=== PATIENT | male | born 1960 | race Caucasian/White ===

== ENCOUNTER → 2017-01-29 | Outpatient (CLI) | payer OTHER ==
--- NOTE | 2017-01-29 15:08 | US ---
EXAMINATION TYPE: US carotid duplex BILAT DATE OF EXAM: 01/29/2017 COMPARISON: NONE CLINICAL HISTORY: I34.0 Mitral valve disorders. EXAM MEASUREMENTS: RIGHT: Peak Systolic Velocity (PSV) cm/sec ----- Right CCA: 85.7 ----- Right ICA: 57.3 ----- Right ECA: 60.5 ICA/CCA ratio: 0.6 RIGHT: End Diastole cm/sec ----- Right CCA: 26.0 ----- Right ICA: 25.2 ----- Right ECA: 11.1 LEFT: Peak Systolic Velocity (PSV) cm/sec ----- Left CCA: 62.5 ----- Left ICA: 96.9 (Bulb) ----- Left ECA: 66.0 ICA/CCA ratio: 1.6 LEFT: End Diastole cm/sec ----- Left CCA: 26.3 ----- Left ICA: 41.8 (bulb) ----- Left ECA: 6.9 VERTEBRALS (direction of flow): Right Vertebral: Antegrade Left Vertebral: Antegrade Rhythm: Normal No significant velocity elevation on right, left bulb show very mild velocity increase. Mild plaque Doppler waveforms appear normal. IMPRESSION: Bilateral intimal thickening without significant flow-limiting stenosis. Criteria for Assigning % of Stenosis / Diameter reduction (Estimation based on the indirect measurements of the internal carotid artery velocities (ICA PSV). 1. Normal (no stenosis)=ICA PSV < 125 cm/s: ratio < 2.0: ICA EDV<40 cm/s. 2. Less than 50% stenosis=ICA PSV < 125 cm/s: ratio < 2.0: ICA EDV<40 cm/s. 3. 50 to 69% stenosis=ICA PSV of 125 to 230 cm/s: ration 2.0 ? 4.0: ICA EDV 40-100 cm/s. 4. Greater than 70% stenosis to near occlusion= ICA PSV > 230 cm/s: ratio > 4.0: ICA EDV > 100 cm/s. 5. Near occlusion= ICA PSV velocities may be low or undetectable: variable ratio and ICA EDV. 6. Total occlusion=unable to detect flow.
--- NOTE | 2017-01-30 08:58 | ECHOF ---
Referral Reason:I34.0 Mitral valve disorders MEASUREMENTS -------- HEIGHT: 167.6 cm WEIGHT: 68.9 kg BP: 121/79 RVIDd: 2.3 cm (< 3.3) IVSd: 0.7 cm (0.6 - 1.1) LVIDd: 4.4 cm (3.9 - 5.3) LVPWd: 0.8 cm (0.6 - 1.1) IVSs: 1.3 cm LVIDs: 2.5 cm LVPWs: 1.2 cm LAESV Index (A-L): 23.97 ml/m Ao Diam: 3.0 cm (2.0 - 3.7) AV Cusp: 1.6 cm (1.5 - 2.6) LA Diam: 2.7 cm (2.7 - 3.8) EPSS: 0.5 cm MV E Ambrose: 0.93 m/s MV DecT: 289 ms MV A Ambrose: 0.88 m/s MV E/A Ratio: 1.06 MV EF SLOPE: 94.99 mm/s (70 - 150) MV EXCURSION: 1.36 cm (> 18.000) FINDINGS -------- Sinus rhythm. This was a technically good study. The left ventricular size is normal. Left ventricular wall thickness is normal. Overall left vent ricular systolic function is normal with, an EF between 60 - 65 %. The right ventricle is normal in size and function. Normal LA size by volume 22+/-6 ml/m2. The right atrium is normal in size. Aortic valve is trileaflet and is mildly thickened. There is no evidence of aortic regurgitation. There is no evidence of aortic stenosis. The mitral valve leaflets are mildly thickened. There is trace mitral regurgitation. Trace tricuspid regurgitation present. Right ventricular systolic pressure is normal at < 35 mmHg. There is no evidence of pulmonary hypertension. The pulmonic valve is normal. The aortic root size is normal. Normal inferior vena cava with normal inspiratory collapse consistent with estimated right atrial pre ssure of 5 mmHg. The pericardium is normal. There is no pericardial effusion. CONCLUSIONS -------- 1. Sinus rhythm. 2. This was a technically good study. 3. The left ventricular size is normal. 4. Left ventricular wall thickness is normal. 5. Overall left ventricular systolic function is normal with, an EF between 60 - 65 %. 6. Normal LA size by volume 22+/-6 ml/m2. 7. Aortic valve is trileaflet and is mildly thickened. 8. The mitral valve leaflets are mildly thickened. 9. There is trace mitral regurgitation. 10. Trace tricuspid regurgitation present. 11. Right ventricular systolic pressure is normal at < 35 mmHg. 12. There is no evidence of pulmonary hypertension. 13. The aortic root size is normal. 14. There is no pericardial effusion. TEACHER MUSIC: Bryan Gonzalez RDCS
== END | disposition home or self-care (01) ==
LOC: RADECHMAIN 13:00
PROVIDERS: ATTEND Internal Medicine
DX: I08.0 Rheumatic disorders of both mitral and aortic valves (principal); I77.89 Other specified disorders of arteries and arterioles
CPT/HCPCS: 93306; 93880

== ENCOUNTER → 2019-04-30 | Outpatient (CLI) | payer MEDICARE, OTHER ==
--- NOTE | 2019-04-30 11:48 | CTL ---
EXAMINATION TYPE: CT Low Dose Lung DATE OF EXAM ORDERED: 04/30/2019 COMPARISON: None HISTORY: . Low Dose CT Lung Screening CT DLP: 94.[address] CTDI: 2.9 mGy IV CONTRAST USED: None. SCREENING VISIT: First visit COMPARISON: None. TECHNIQUE: Low dose computed tomography scan was performed through the chest at 1 millimeter thick se ctions and reconstructed images in the coronal plane at [address] DIAGNOSTIC QUALITY: Satisfactory FINDINGS: LUNG NODULES: Not presentLeft lung: no nodules identified.Right lung: no nodules identified. LUNGS: COPD: Severity: Mild Fibrosis: Severity:None Lymph nodes: None Other findings: None RIGHT PLEURAL SPACE: Effusion: None Calcification: None Thickening: None Pneumothorax: None LEFT PLEURAL SPACE: Effusion: None Calcification: None Thickening: None Pneumothorax: None HEART: Heart Size: Mildly enlarged Coronary calcification: Mild Pericardial effusion: None OTHER FINDINGS: Upper abdomen: No significant abnormality Bony thorax: Degenerative changes Supraclavicular region: No significant abnormalityOther: No significant abnormalityI IMPRESSION: No suspicious pulmonary nodule or mass identified. FOLLOW UP CT CHEST RECOMMENDATION: Follow-up screening in one year CT LUNG RAD: LUNG RAD CATEGORY 1 negative
== END | disposition home or self-care (01) ==
LOC: RADCTMAIN 10:54
PROVIDERS: ATTEND Internal Medicine
DX: Z12.2 Encounter for screening for malignant neoplasm of respiratory organs (principal); F17.210 Nicotine dependence, cigarettes, uncomplicated

== ENCOUNTER → 2019-10-18 | Outpatient (CLI) | payer MEDICARE, OTHER ==
--- NOTE | 2019-10-18 11:52 | XR ---
EXAMINATION TYPE: XR ribs LT w pa chest xray DATE OF EXAM: 10/18/2019 COMPARISON: NONE HISTORY: Pain TECHNIQUE: PA view of the chest and 4 views of the left ribs are submitted FINDINGS: The lungs are clear. There is hypertrophic change of the AC joint. No pneumothorax or conso lidation. No pleural effusion. No acute displaced rib fracture IMPRESSION: No acute displaced rib fracture.
== END | disposition home or self-care (01) ==
LOC: RADXRMAIN 10:44
PROVIDERS: ATTEND Internal Medicine
DX: S22.32XA Fracture of one rib, left side, initial encounter for closed fracture (principal)

== ENCOUNTER 2020-01-05 10:13 | Emergency (ER) | payer MEDICARE, OTHER ==
[2020-01-05 10:16] VITALS: BP 123/76; RESP 18; TEMP 98.1
[2020-01-05] MEDS ORDERED: CEPHALEXIN 500MG STARTER PACK 4 CAP BTL PO STA (10:40)
--- NOTE | 2020-01-05 10:48 | ED ---
ENT HPI - General Chief complaint: Dental/Oral Stated complaint: mouth pain Source: patient Mode of arrival: ambulatory Limitations: no limitations - History of Present Illness Initial comments: 59-year-old male presenting today for chief complaint of left upper lip swelling x 1 day. Patient states that he had a, after shaving on his left upper lip. Patient states that it became slightly swollen and he attempted to drain with a needle last night. He states the middle night he had throbbing pain, and woke up with a swollen left lip with some redness. Patient denies any purulent drainage. He denies any fevers chills general malaise or additional complaints. Upon arrival patient appears well nontoxic in no acute distress. Patietn denies tongue swelling, difficulty breathing, wheezing, nausea, vomiting abdominal pain. Patient appears well nontoxic in no acute distress upon arrival. - Related Data Home Medications Medication Instructions Recorded Confirmed Aspirin 325 mg PO DAILY 04/17/15 04/18/15 Beclomethasone Dipropionate [Qvar 2 puff INHALATION BID 04/17/15 04/18/15 80 mcg/puff] Butalb/Acetaminophen/Caffeine 1 - 2 cap PO Q4HR PRN 04/17/15 04/18/15 [Fioricet 50-300-40 mg Capsule] HYDROcodone/APAP 5-325MG [Clyde 1 - 2 tab PO Q6HR PRN 04/17/15 04/18/15 5-325] Omeprazole 40 mg PO AC-BRKFST 04/17/15 04/18/15 Simvastatin [Zocor] 20 mg PO HS 04/17/15 04/18/15 Zolpidem [Ambien] 10 mg PO HS PRN 04/17/15 04/18/15 carisoprodoL [Soma] 350 mg PO HS 04/17/15 04/18/15 lisinopriL [Zestril] 10 mg PO DAILY 04/17/15 04/18/15 Previous Rx's Medication Instructions Recorded Cephalexin [Keflex] 500 mg PO Q6HR 7 Days #28 cap 01/05/20 Allergies Allergy/AdvReac Type Severity Reaction Status Date / Time metoclopramide HCl AdvReac agitated Verified 01/05/20 10:17 [From Reglan] prochlorperazine AdvReac agitated Verified 01/05/20 10:17 [From Compazine] prochlorperazine edisylate AdvReac agitated Verified 01/05/20 10:17 [From Compazine] prochlorperazine maleate AdvReac agitated Verified 01/05/20 10:17 [From Compazine] Review of Systems ROS Statement: Those systems with pertinent positive or pertinent negative responses have been documented in the HPI. ROS Other: All systems not noted in ROS Statement are negative. Past Medical History Past Medical History: Asthma, COPD, GERD/Reflux, Hyperlipidemia, Hypertension, Sleep Apnea/CPAP/BIPAP Additional Past Medical History / Comment(s): uses CPAP, hx. kidney stones, migraines History of Any Multi-Drug Resistant Organisms: None Reported Past Surgical History: Back Surgery, Hernia Repair Additional Past Surgical History / Comment(s): back & neck fusions x 2, surg. for kidney stones, repair of gastric ulcer Past Anesthesia/Blood Transfusion Reactions: No Reported Reaction Past Psychological History: No Psychological Hx Reported Smoking Status: Current every day smoker Past Alcohol Use History: None Reported Past Drug Use History: None Reported - Past Family History Mother Family Medical History: No Reported History General Exam - General Exam Comments Initial Comments: General: The patient is awake and alert, in no distress Eye: +3 mm pupils are equal, round and reactive to light, extra-ocular movements are intact. No nystagmus. There is normal conjunctiva bilaterally. No signs of icterus. Ears, nose, mouth and throat: There are moist mucous membranes and no oral lesions. Neck: The neck is supple, there is no tenderness or JVD. Cardiovascular: There is a regular rate and rhythm. No murmur, rub or gallop is appreciated. Respiratory: Lungs are clear to auscultation, respirations are non-labored, breath sounds are equal. No wheezes, stridor, rales, or rhonchi. Gastrointestinal: Soft, non-distended, non-tender abdomen without masses or organomegaly noted. There is no rebound or guarding present. Musculoskeletal: Normal ROM, no tenderness. Strength 5/5. Sensation intact. Radial pulses equal bilaterally 2+. Neurological: A&O x 3. CN II-XII intact grossly, There are no obvious motor or sensory deficits. Coordination appears grossly intact. Speech is normal. Skin: Skin is warm and dry and no rashes.Left upper lip swelling, small abrasion 1/4 cm. swelling redness surrounding lesion, no fluctuant area Psychiatric: Cooperative, appropriate mood & affect, normal judgment. Limitations: no limitations Course Vital Signs 01/05/20 01/05/20 01/05/20 10:14 10:51 10:59 Temperature 98.1 F 98.1 F Pulse Rate 116 H 94 94 Respiratory 18 18 18 Rate Blood Pressure 123/76 123/76 O2 Sat by Pulse 99 99 99 Oximetry Medical Decision Making - Medical Decision Making Patient has hx, PE findings concerning for developing infection. Patient does take lisinopril however given redness, laceration i feel this is most likely infectious. I discussed the importance of watching for tongue swelling, increasing lip swelling. Patient feels this is infectious given he inserted needle into right before swelling started. Discussed case/hx/medications with attending he is agreeable to close home monitoring with oral antibtioics and pcp f/u. Return parameters discussed pateint discharged appearing well. Disposition Clinical Impression: Infected lip laceration Disposition: HOME SELF-CARE Condition: Good Instructions (If sedation given, give patient instructions): Cellulitis (ED) Additional Instructions: Please use medication as discussed. Please follow-up with family doctor in the next 2 days. Watch for fevers, increasing swelling. Please return to emergency room if the symptoms increase or worsen or for any other concerns. Prescriptions: Cephalexin [Keflex] 500 mg PO Q6HR 7 Days #28 cap Is patient prescribed a controlled substance at d/c from ED?: No Referrals: Betty Boothe MD [Primary Care Provider] - 1-2 days Time of Disposition: 10:48
[2020-01-05 10:51] VITALS: PULSE 94
== END 2020-01-05 11:00 | disposition home or self-care (01) ==
LOC: EC 10:13
DX: S01.511A Laceration without foreign body of lip, initial encounter (principal); L08.9 Local infection of the skin and subcutaneous tissue, unspecified; R22.0 Localized swelling, mass and lump, head; J44.9 Chronic obstructive pulmonary disease, unspecified; K21.9 Gastro-esophageal reflux disease without esophagitis; E78.5 Hyperlipidemia, unspecified; I10 Essential (primary) hypertension; G47.30 Sleep apnea, unspecified; F17.200 Nicotine dependence, unspecified, uncomplicated; Z88.8 Allergy status to other drugs, medicaments and biological substances; Z99.89 Dependence on other enabling machines and devices; Z79.51 Long term (current) use of inhaled steroids; Z79.899 Other long term (current) drug therapy; Z79.82 Long term (current) use of aspirin; W45.8XXA Other foreign body or object entering through skin, initial encounter
CPT/HCPCS: 99283

== ENCOUNTER → 2020-03-15 | Outpatient (CLI) | payer MEDICARE, OTHER ==
[2020-03-15 16:09] LABS: Basophils % (A) 0 %; Eosinophils # (A) 0.1 k/uL (0-0.7); Eosinophils % (A) 0 %; HCT 46.3 % (39.0-53.0); HGB 15.3 gm/dL (13.0-17.5); Lymphocytes # (A) 2.6 k/uL (1.0-4.8); Lymphocytes % (A) 25 %; MCH 31.3 pg (25.0-35.0); MCV 94.7 fL (80.0-100.0); Mean Platelet Volume 6.9; Monocytes # (A) 0.6 k/uL (0-1.0); Monocytes % (A) 6 %; Neutrophils % (A) 67 %; Platelet Count 280 k/uL (150-450); RBC 4.89 m/uL (4.30-5.90); RDW 12.1 % (11.5-15.5); WBC 10.4 k/uL (3.8-10.6)
[2020-03-15 16:34] LABS: Appearance,Urine Clear (Clear); Bilirubin,Urine Negative (Negative); Blood,Urine Negative (Negative); Color,Urine Yellow; Glucose,Urine (UA) Negative (Negative); Ketones,Urine Negative (Negative); Leukocyte Esterase,Urine Negative (Negative); Nitrite,Urine Negative (Negative); PH, Urine 5.5 (5.0-8.0); Protein,Urine Negative (Negative); Specific Gravity,Urine 1.018 (1.001-1.035); Urobilinogen,Urine <2.0 mg/dL (<2.0)
[2020-03-16 03:00] LABS: African American GFR (CKD) 113.3 (60.0-200.0); Albumin 4.6 g/dL (3.80-4.90); Albumin/Globulin Ratio 2.3 (1.60-3.17); Anion Gap 3.9 mmol/L (4.00-12.00); Calcium 9.3 mg/dL (8.7-10.3); Carbon Dioxide 29.1 mmol/L (21.6-31.8); Non-African American GFR(CKD) 97.8 (60.0-200.0); Potassium 4.6 mmol/L (3.5-5.5); Total Bilirubin 0.4 mg/dL (0.2-1.2); Total Protein 6.6 g/dL (6.2-8.2)
[2020-03-16 09:21] LABS: INR 0.96 (0.90-1.11); Partial Thromboplastin Time 27.1 sec (23.5-31.0); Prothrombin Time 10.4 sec (9.9-11.9)
== END | disposition home or self-care (01) ==
LOC: LABWHC1 15:38
PROVIDERS: ATTEND Internal Medicine
DX: Z01.810 Encounter for preprocedural cardiovascular examination (principal)
CPT/HCPCS: 36415; 80053; 81003; 85025; 85610; 85730

== ENCOUNTER 2020-06-19 21:27 | Emergency (ER) | payer MEDICARE, OTHER ==
[2020-06-19 21:46] VITALS: RESP 18
[2020-06-19 22:02] LABS: Glucose,Whole Blood 115 mg/dL (75-99)
[2020-06-19 22:21] LABS: Basophils # (A) 0.1 k/uL (0-0.2); Basophils % (A) 1 %; Eosinophils # (A) 0.1 k/uL (0-0.7); Eosinophils % (A) 0 %; HCT 49.9 % (39.0-53.0); HGB 16.5 gm/dL (13.0-17.5); Lymphocytes # (A) 3.9 k/uL (1.0-4.8); Lymphocytes % (A) 31 %; MCHC 33.1 g/dL (31.0-37.0); MCV 90.6 fL (80.0-100.0); Mean Platelet Volume 6.9; Monocytes # (A) 0.7 k/uL (0-1.0); Monocytes % (A) 5 %; Neutrophils # (A) 7.6 k/uL (1.3-7.7); Neutrophils % (A) 60 %; Platelet Count 315 k/uL (150-450); RDW 12.5 % (11.5-15.5); WBC 12.6 k/uL (3.8-10.6)
[2020-06-19 22:31] LABS: INR 0.9 (<1.2); Partial Thromboplastin Time 22.8 sec (22.0-30.0); Prothrombin Time 10.1 sec (9.0-12.0)
--- NOTE | 2020-06-19 22:33 | XR ---
EXAMINATION TYPE: XR chest 2V DATE OF EXAM: 06/19/2020 COMPARISON: 10/18/2019 HISTORY: Dizziness TECHNIQUE: FINDINGS: Heart and mediastinum are normal. Lungs are clear. Diaphragm is normal. Bony thorax appears normal. IMPRESSION: Normal chest. No change.
[2020-06-19 22:34] LABS: ALT 25 U/L (4-49); AST 23 U/L (17-59); African American GFR (CKD) >90 (>60 ml/min/1.73 sqM); Albumin 4.7 g/dL (3.5-5.0); Alkaline Phosphatase 102 U/L (38-126); Anion Gap 12 mmol/L; Blood Urea Nitrogen 11 mg/dL (9-20); Calcium 9.6 mg/dL (8.4-10.2); Carbon Dioxide 23 mmol/L (22-30); Chloride 100 mmol/L (98-107); Glucose 119 mg/dL (74-99); Non-African American GFR(CKD) >90 (>60 ml/min/1.73 sqM); Sodium 135 mmol/L (137-145); Total Bilirubin 0.5 mg/dL (0.2-1.3); Total Protein 7.5 g/dL (6.3-8.2)
[2020-06-19] MEDS ORDERED: ACETAMINOPHEN TAB 500 MG TAB PO STA (22:52)
[2020-06-19] MEDS ORDERED: KETOROLAC 15 MG/ML 1 ML VIAL IVP STA (22:52)
[2020-06-19] MEDS ORDERED: SODIUM CHLORIDE 0.9% 1,000 ML IV STA ×2 (22:52)
[2020-06-19] MEDS ORDERED: SODIUM CHLORIDE 0.9% 500 ML 500 ML IV STA (22:52)
[2020-06-19] MEDS ORDERED: ALBUTEROL HFA INHALER INHALATION PRN (22:52)
[2020-06-19] MEDS ORDERED: ALBUTEROL HFA INHALER INHALATION STA (22:52)
[2020-06-19] MEDS ORDERED: DEXAMETHASONE SOD PHOSPHATE 10 MG/ML 1 ML VIAL IV STA (22:52)
[2020-06-19] MEDS ORDERED: PANTOPRAZOLE 40 MG/10 ML VIAL IVP STA (23:26)
[2020-06-19] MEDS ORDERED: ONDANSETRON 4 MG/2 ML VIAL IVP STA (23:26)
[2020-06-19] MEDS ORDERED: ONDANSETRON ODT 4 MG TAB PO STA (23:28)
[2020-06-19] MEDS ORDERED: ONDANSETRON 4 MG ODT STARTER PACK 2 TAB BTL PO STA (23:28)
[2020-06-19] MEDS ORDERED: dexAMETHasone 2 MG TAB PO STA (23:28)
[2020-06-19] MEDS ORDERED: diphenhydrAMINE 50 MG CAP PO STA (23:32)
[2020-06-19] MEDS ORDERED: MORPHINE SULFATE 4 MG/ML SYRINGE IM STA (23:32)
--- NOTE | 2020-06-19 23:44 | ED ---
Weakness HPI - General Chief complaint: Dizziness Stated complaint: Weakness,SOB,nausea Time Seen by Provider: 06/19/20 22:51 Source: patient Mode of arrival: ambulatory Limitations: no limitations - Related Data Home Medications Medication Instructions Recorded Confirmed HYDROcodone/APAP 5-325MG [Sewell 2 tab PO Q8HR PRN 04/17/15 06/19/20 5-325] Omeprazole 40 mg PO AC-BRKFST 04/17/15 06/19/20 Zolpidem [Ambien] 10 mg PO HS PRN 04/17/15 06/19/20 carisoprodoL [Soma] 350 mg PO BID PRN 04/17/15 06/19/20 lisinopriL [Zestril] 10 mg PO DAILY 04/17/15 06/19/20 Acetaminophen Tab [Tylenol] 1,000 mg PO Q6H PRN 06/19/20 06/19/20 Aspirin EC [Ecotrin Low Dose] 81 mg PO ONCE PRN 06/19/20 06/19/20 Simvastatin [Zocor] 40 mg PO HS 06/19/20 06/19/20 Allergies Allergy/AdvReac Type Severity Reaction Status Date / Time metoclopramide HCl AdvReac agitated Verified 06/19/20 23:38 [From Reglan] prochlorperazine AdvReac agitated Verified 06/19/20 23:38 [From Compazine] prochlorperazine edisylate AdvReac agitated Verified 06/19/20 23:38 [From Compazine] prochlorperazine maleate AdvReac agitated Verified 06/19/20 23:38 [From Compazine] Review of Systems ROS Statement: Those systems with pertinent positive or pertinent negative responses have been documented in the HPI. ROS Other: All systems not noted in ROS Statement are negative. Past Medical History Past Medical History: Asthma, COPD, GERD/Reflux, Hyperlipidemia, Hypertension, Sleep Apnea/CPAP/BIPAP Additional Past Medical History / Comment(s): uses CPAP, hx. kidney stones, migraines History of Any Multi-Drug Resistant Organisms: None Reported Past Surgical History: Back Surgery, Hernia Repair, Orthopedic Surgery Additional Past Surgical History / Comment(s): back & neck fusions x 2, surg. for kidney stones, repair of gastric ulcer, right shoulder surgery Past Anesthesia/Blood Transfusion Reactions: No Reported Reaction Past Psychological History: No Psychological Hx Reported Smoking Status: Current every day smoker Past Alcohol Use History: None Reported Past Drug Use History: None Reported - Past Family History Mother Family Medical History: No Reported History General Exam Limitations: no limitations Course Vital Signs 06/19/20 06/19/20 21:41 22:51 Temperature 97.9 F Pulse Rate 115 H 102 H Respiratory 18 18 Rate Blood Pressure 166/112 160/109 O2 Sat by Pulse 98 98 Oximetry Medical Decision Making - Lab Data Result diagrams: 06/19/20 22:08 06/19/20 22:08 Lab Results 06/19/20 06/19/20 06/19/20 Range/Units 22:01 22:08 22:08 WBC 12.6 H (3.8-10.6) k/uL RBC 5.50 (4.30-5.90) m/uL Hgb 16.5 (13.0-17.5) gm/dL Hct 49.9 (39.0-53.0) % MCV 90.6 (80.0-100.0) fL MCH 30.0 (25.0-35.0) pg MCHC 33.1 (31.0-37.0) g/dL RDW 12.5 (11.5-15.5) % Plt Count 315 (150-450) k/uL MPV 6.9 Neutrophils % 60 % Lymphocytes % 31 % Monocytes % 5 % Eosinophils % 0 % Basophils % 1 % Neutrophils # 7.6 (1.3-7.7) k/uL Lymphocytes # 3.9 (1.0-4.8) k/uL Monocytes # 0.7 (0-1.0) k/uL Eosinophils # 0.1 (0-0.7) k/uL Basophils # 0.1 (0-0.2) k/uL PT 10.1 (9.0-12.0) sec INR 0.9 (<1.2) APTT 22.8 (22.0-30.0) sec Sodium (137-145) mmol/L Potassium (3.5-5.1) mmol/L Chloride (98-107) mmol/L Carbon Dioxide (22-30) mmol/L Anion Gap mmol/L BUN (9-20) mg/dL Creatinine (0.66-1.25) mg/dL Est GFR (CKD-EPI)AfAm (>60 ml/min/1.73 sqM) Est GFR (CKD-EPI)NonAf (>60 ml/min/1.73 sqM) Glucose (74-99) mg/dL POC Glucose (mg/dL) 115 H (75-99) mg/dL POC Glu Liability Claims Representative ID Katja Mahoney Calcium (8.4-10.2) mg/dL Total Bilirubin (0.2-1.3) mg/dL AST (17-59) U/L ALT (4-49) U/L Alkaline Phosphatase (38-126) U/L Troponin I (0.000-0.034) ng/mL Total Protein (6.3-8.2) g/dL Albumin (3.5-5.0) g/dL Coronavirus (PCR) (Not Detectd) 06/19/20 06/19/20 06/19/20 Range/Units 22:08 22:08 22:11 WBC (3.8-10.6) k/uL RBC (4.30-5.90) m/uL Hgb (13.0-17.5) gm/dL Hct (39.0-53.0) % MCV (80.0-100.0) fL MCH (25.0-35.0) pg MCHC (31.0-37.0) g/dL RDW (11.5-15.5) % Plt Count (150-450) k/uL MPV Neutrophils % % Lymphocytes % % Monocytes % % Eosinophils % % Basophils % % Neutrophils # (1.3-7.7) k/uL Lymphocytes # (1.0-4.8) k/uL Monocytes # (0-1.0) k/uL Eosinophils # (0-0.7) k/uL Basophils # (0-0.2) k/uL PT (9.0-12.0) sec INR (<1.2) APTT (22.0-30.0) sec Sodium 135 L (137-145) mmol/L Potassium 4.0 (3.5-5.1) mmol/L Chloride 100 (98-107) mmol/L Carbon Dioxide 23 (22-30) mmol/L Anion Gap 12 mmol/L BUN 11 (9-20) mg/dL Creatinine 0.74 (0.66-1.25) mg/dL Est GFR (CKD-EPI)AfAm >90 (>60 ml/min/1.73 sqM) Est GFR (CKD-EPI)NonAf >90 (>60 ml/min/1.73 sqM) Glucose 119 H (74-99) mg/dL POC Glucose (mg/dL) (75-99) mg/dL POC Glu Liability Claims Representative ID Calcium 9.6 (8.4-10.2) mg/dL Total Bilirubin 0.5 (0.2-1.3) mg/dL AST 23 (17-59) U/L ALT 25 (4-49) U/L Alkaline Phosphatase 102 (38-126) U/L Troponin I <0.012 (0.000-0.034) ng/mL Total Protein 7.5 (6.3-8.2) g/dL Albumin 4.7 (3.5-5.0) g/dL Coronavirus (PCR) Detected A (Not Detectd) Disposition Clinical Impression: Coronavirus infection Disposition: HOME SELF-CARE Condition: Good Instructions (If sedation given, give patient instructions): Coronavirus Disease 2019 (COVID-19) Is patient prescribed a controlled substance at d/c from ED?: No Referrals: Betty Boothe MD [Primary Care Provider] - 1-2 days
[2020-06-20 00:10] LABS: C Reactive Protein 5.5 mg/L (<10.0)
[2020-06-20 00:28] VITALS: BP 155/104; PULSE 107; TEMP 98.1
== END 2020-06-20 00:26 | disposition home or self-care (01) ==
LOC: EC 21:27
DX: B34.2 Coronavirus infection, unspecified (principal); J45.909 Unspecified asthma, uncomplicated; E78.5 Hyperlipidemia, unspecified; I10 Essential (primary) hypertension; F17.200 Nicotine dependence, unspecified, uncomplicated
CPT/HCPCS: 36415; 93005; 80053; 83615; 83735; 84484; 85025; 85610; 85730; 86140; 87635; 71046; 99285; 96372; J2270; J8540; S0119

== ENCOUNTER → 2021-02-23 | Outpatient (CLI) | payer MEDICARE, OTHER ==
--- NOTE | 2021-02-23 14:12 | XR ---
EXAMINATION TYPE: XR shoulder complete RT DATE OF EXAM: 02/23/2021 COMPARISON: NONE HISTORY: Pain TECHNIQUE: Three views are submitted. FINDINGS: The osseous structures are intact. There is no acute fracture or dislocation. AC joint arthropathy. IMPRESSION: 1. No acute process.
== END | disposition home or self-care (01) ==
LOC: RADXRMAIN 13:52
PROVIDERS: ATTEND Internal Medicine
DX: M25.511 Pain in right shoulder (principal)

== ENCOUNTER → 2021-10-17 | Outpatient (CLI) | payer MEDICARE, OTHER ==
--- NOTE | 2021-10-17 10:43 | US ---
EXAMINATION TYPE: US carotid duplex BILAT DATE OF EXAM: 10/17/2021 COMPARISON: NONE CLINICAL HISTORY: I20.8 Other forms of angina pectoris. HTN controlled with meds. SOB. TECHNIQUE: Carotid duplex ultrasound examination. Indirect Doppler criteria was utilized. FINDINGS: EXAM MEASUREMENTS: RIGHT: Peak Systolic Velocity (PSV) cm/sec ----- Right CCA: 77.6 ----- Right ICA: 119.8 ----- Right ECA: 104.3 ICA/CCA ratio: 1.5 RIGHT: End Diastole cm/sec ----- Right CCA: 22.6 ----- Right ICA: 40.9 ----- Right ECA: 29.2 LEFT: Peak Systolic Velocity (PSV) cm/sec ----- Left CCA: 79.2 ----- Left ICA: 112.9 ----- Left ECA: 69.4 ICA/CCA ratio: 1.4 LEFT: End Diastole cm/sec ----- Left CCA: 26.3 ----- Left ICA: 41.8 ----- Left ECA: 16.2 VERTEBRALS (direction of flow): Right Vertebral: Antegrade Left Vertebral: Antegrade Rhythm: Normal LARGE ANIMAL HUSBANDRY TECHNICIAN NOTES: No elevated velocities or significant stenosis. Plaque seen. IMPRESSION: 1. No significant flow-limiting stenosis. Criteria for Assigning % of Stenosis / Diameter reduction (Estimation based on the indirect measurements of the internal carotid artery velocities (ICA PSV). 1. Normal (no stenosis)=ICA PSV < 125 cm/s: ratio < 2.0: ICA EDV<40 cm/s. 2. Less than 50% stenosis=ICA PSV < 125 cm/s: ratio < 2.0: ICA EDV<40 cm/s. 3. 50 to 69% stenosis=ICA PSV of 125 to 230 cm/s: ration 2.0 ? 4.0: ICA EDV 40-100 cm/s. 4. Greater than 70% stenosis to near occlusion= ICA PSV > 230 cm/s: ratio > 4.0: ICA EDV > 100 cm/s. 5. Near occlusion= ICA PSV velocities may be low or undetectable: variable ratio and ICA EDV. 6. Total occlusion=unable to detect flow.
== END | disposition home or self-care (01) ==
LOC: RADUSWWP 08:09
PROVIDERS: ATTEND Internal Medicine
DX: I20.8 Other forms of angina pectoris (principal); I65.23 Occlusion and stenosis of bilateral carotid arteries; R06.02 Shortness of breath; I10 Essential (primary) hypertension
CPT/HCPCS: 93880

== ENCOUNTER → 2021-11-05 | Outpatient (CLI) | payer MEDICARE, OTHER ==
--- NOTE | 2021-11-06 07:06 | CTL ---
EXAMINATION TYPE: CT Low Dose Lung DATE OF EXAM ORDERED: 11/05/2021 HISTORY: Long-term tobacco use. Lung cancer screening CT DLP: 119.[address] CTDI: 3.40 mGy Automated exposure control for dose reduction was used. SCREENING VISIT: First after baseline COMPARISON: Prior CT 2019 TECHNIQUE: Low dose computed tomography scan was performed through the chest at 1 mm thick sections a nd reconstructed images in multiple planes at 1 mm and [address] DIAGNOSTIC QUALITY: Satisfactory FINDINGS: LUNG NODULES: None. LUNGS: COPD: Severity: Mild Fibrosis: Severity: None Lymph nodes: None Other findings: Ectatic ascending aorta up to 3.8 cm RIGHT PLEURAL SPACE: Effusion: None Calcification: None Thickening: None Pneumothorax: None LEFT PLEURAL SPACE: Effusion: None Calcification: None Thickening: None Pneumothorax: None HEART: Heart Size: Normal Coronary Calcification: Mild to Moderate Pericardial Effusion: None OTHER FINDINGS: Upper abdomen: Contracted gallbladder Bony thorax: Bridging osteophytes lower thoracic spine Supraclavicular region: None Other: None IMPRESSION: No suspicious new nodules. CT LUNG RAD AND CT CHEST RECOMMENDATION: Lung-Rad 1 Negative: Continue annual screening with LDCT in 12 months. S Modifier (other clinically significant findings): None
== END | disposition home or self-care (01) ==
LOC: RADCTMAIN 17:12
PROVIDERS: ATTEND Internal Medicine
DX: Z12.2 Encounter for screening for malignant neoplasm of respiratory organs (principal); Z87.891 Personal history of nicotine dependence
CPT/HCPCS: 71271

== ENCOUNTER → 2021-11-15 | Outpatient (CLI) | payer MEDICARE, OTHER ==
--- NOTE | 2021-11-15 11:06 | CA ---
Exercise Stress Test Report Name: Aries Howe Exam Date: 11/15/2021 10:37 Exam Location: [place] Stress Ht (in): 66 Wt (lb): 192 BSA: 1.97 Ordering Phys: Betty Boothe MD Referring Phys: Shyann, Technologist: Pravin Penny Age: 60 Gender: M : 1960 Procedure CPT: Indications: R00.2 palpitations ICD-10 Codes: Patient History: Chest Pain, Shortness of breath Medications: Meds past 24 hrs: Pretest Chest Pain: STRESS TEST [place] Protocol Exercise Duration (min:sec): 03:[address] Depressions (mm): Angina Score: Medina Score: Resting HR (bpm): 86 Peak HR (bpm): 136 Resting BP (mmHg): 140 / 80 Peak BP (mmHg): 175 / 86 MPHR: 160 Target HR: 136 % MPHR: 85 METS: 5.6 Total Dose: Peak Dose: Atropine: Double Product: 28630 BP Response: Stress Termination: Reached target heart rate Stress Symptoms: Syncope,, Dyspnea Stress Summary: ECG ANALYSIS Resting ECG: Stress ECG: CONCLUSIONS Baseline EKG revealed normal sinus rhythm without significant ST-T changes patient walked for 3 minutes and 34 seconds and achieved a maximal heart rate of 136 bpm which is more than 85% of predicted maximal. He developed fatigue and shortness of breath. No anginal symptoms. No EKG changes to indicate ischemia. This is a negative stress test with limited exercise capacity Dr. Courtney Gardner MD (Electronically Signed) Final Date: 15 November 2021 11:05
== END | disposition home or self-care (01) ==
LOC: RADNMMAIN 10:10
PROVIDERS: ATTEND Internal Medicine
DX: R00.2 Palpitations (principal)
CPT/HCPCS: 93017

== ENCOUNTER → 2022-02-19 | Outpatient (CLI) | payer MEDICARE, OTHER ==
[~2022-02-19] MED LIST: REGADENOSON 0.4 MG/5 ML SYRINGE IV PRN
--- NOTE | 2022-02-19 11:01 | NM ---
EXAMINATION TYPE: NM stress lexiscan cardiolite DATE OF EXAM: 02/19/2022 COMPARISON: NONE HISTORY: Chest pain TECHNIQUE: After the intravenous administration of 7.99 mCi Tc 99m Sestamibi - Cardiolite resting SP ECT images acquired 45 minutes post injection. The patient received 0.4mg Lexiscan, 26.1 mCi Tc 99m Sestamibi - Stress images obtained [address] injection FINDINGS: Review of stress and rest SPECT images demonstrates no distinct perfusion abnormality. Gated analysi s shows normal wall motion with an estimated left ventricular ejection fraction of 65 %. IMPRESSION: No scintigraphic evidence for reversible ischemia.
--- NOTE | 2022-02-19 11:22 | CA ---
Lexiscan Nuclear Stress Test Report Name: Aries Howe Exam Date: 02/19/2022 09:44 Exam Location: [place] Stress Ht (in): 66 Wt (lb): 184 BSA: 1.93 Ordering Phys: Betty Walters MD Referring Phys: BETTY WALTERS,, Technologist: Laureano Hall Age: 61 Gender: M : 1960 Procedure CPT: Indications: I20.8 effort angina ICD-10 Codes: Patient History: Chest pain, Short of breath and palpitations. Medications: Meds past 24 hrs: Pretest Chest Pain: STRESS TEST Lexiscan Protocol Exercise Duration (min:sec): 02:[address] Depressions (mm): Angina Score: Medina Score: Resting HR (bpm): 66 Peak HR (bpm): 113 Resting BP (mmHg): 153 / 79 Peak BP (mmHg): 154 / 84 MPHR: 159 Target HR: 135 % MPHR: 71 METS: 1.0 Total Dose: Peak Dose: Atropine: Double Product: 35902 BP Response: Stress Termination: Infusion complete Stress Symptoms: No chest pain or symptoms Stress Summary: ECG ANALYSIS Resting ECG: Normal sinus rhythm normal axis normal intervals Stress ECG: Patient was given intravenous Lexiscan as a protocol did not have chest pain or diagnostic ST segment depression CONCLUSIONS Negative stress test by EKG criteria Cardiolite portion of the stress test will be reported separately Dr. Eduard Montelongo MD (Electronically Signed) Final Date: 19 February 2022 11:22
== END | disposition home or self-care (01) ==
LOC: RADNMMAIN 07:52
PROVIDERS: ATTEND Internal Medicine
DX: I20.8 Other forms of angina pectoris (principal)
CPT/HCPCS: 93017; 78452; A9500; J2785

== ENCOUNTER → 2023-06-04 | Outpatient (CLI) | payer MEDICARE, OTHER ==
--- NOTE | 2023-06-04 21:11 | US ---
EXAMINATION TYPE: US carotid duplex BILAT DATE OF EXAM: 06/04/2023 COMPARISON: US 10/17/2021 CLINICAL INDICATION: Male, 62 years old with history of I65.23 OCCLUSION AND STENOSIS OF BILATERAL CA ROTID; Current smoker, hypertension, hyperlipidemia, diabetes. TECHNIQUE: Carotid duplex ultrasound examination. Indirect Doppler criteria was utilized. FINDINGS: EXAM MEASUREMENTS: RIGHT: Peak Systolic Velocity (PSV) cm/sec ----- Right CCA: 97.4 ----- Right ICA: 170 ----- Right ECA: 141 ICA/CCA ratio: 1.75 RIGHT: End Diastole cm/sec ----- Right CCA: 27.3 ----- Right ICA: 40.8 ----- Right ECA: 40.8 LEFT: Peak Systolic Velocity (PSV) cm/sec ----- Left CCA: 92.2 ----- Left ICA: 122 ----- Left ECA: 104 ICA/CCA ratio: 1.32 LEFT: End Diastole cm/sec ----- Left CCA: 24.7 ----- Left ICA: 41.1 ----- Left ECA: 24.7 VERTEBRALS (direction of flow): Right Vertebral: Antegrade Left Vertebral: Antegrade Rhythm: Normal CLINIC MD ASSOCIATE NOTES: Plaque seen within bilateral carotid arteries and bulbs. Elevated velocity withi n right ICA and right ECA. IMPRESSION: Plaquing within the right internal carotid artery with moderate stenosis between 50-69% Criteria for Assigning % of Stenosis / Diameter reduction (Estimation based on the indirect measurements of the internal carotid artery velocities (ICA PSV). 1. Normal (no stenosis)=ICA PSV < 125 cm/s: ratio < 2.0: ICA EDV<40 cm/s. 2. Less than 50% stenosis=ICA PSV < 125 cm/s: ratio < 2.0: ICA EDV<40 cm/s. 3. 50 to 69% stenosis=ICA PSV of 125 to 230 cm/s: ration 2.0 ? 4.0: ICA EDV 40-100 cm/s. 4. Greater than 70% stenosis to near occlusion= ICA PSV > 230 cm/s: ratio > 4.0: ICA EDV > 100 cm/s. 5. Near occlusion= ICA PSV velocities may be low or undetectable: variable ratio and ICA EDV. 6. Total occlusion=unable to detect flow.
== END | disposition home or self-care (01) ==
LOC: RADUSWWP 15:17
PROVIDERS: ATTEND Internal Medicine
DX: I65.23 Occlusion and stenosis of bilateral carotid arteries (principal); I73.9 Peripheral vascular disease, unspecified; E11.9 Type 2 diabetes mellitus without complications; E78.5 Hyperlipidemia, unspecified; I10 Essential (primary) hypertension; F17.200 Nicotine dependence, unspecified, uncomplicated
CPT/HCPCS: 93880

== ENCOUNTER → 2023-06-09 | Outpatient (CLI) | payer MEDICARE, OTHER ==
--- NOTE | 2023-06-09 13:15 | CTL ---
EXAMINATION TYPE: CT Low Dose Lung DATE OF EXAM ORDERED: 06/09/2023 COMPARISON: 11/05/2021 HISTORY: . Low Dose CT Lung Screening CT DLP: 90.[address] CTDI: 2.4 mGy IV CONTRAST USED: None. SCREENING VISIT: First visit TECHNIQUE: Low dose computed tomography scan was performed through the chest at 1 millimeter thick se ctions and reconstructed images in the coronal plane at [address] DIAGNOSTIC QUALITY: Satisfactory FINDINGS: LUNG NODULES: Not presentLeft lung: no nodules identified.Right lung: no nodules identified. LUNGS: COPD: Severity: None Fibrosis: Severity:None Lymph nodes: None Other findings: None RIGHT PLEURAL SPACE: Effusion: None Calcification: None Thickening: None Pneumothorax: None LEFT PLEURAL SPACE: Effusion: None Calcification: None Thickening: None Pneumothorax: None HEART: Heart Size: Mildly enlarged Coronary calcification: Mild Pericardial effusion: None OTHER FINDINGS: Upper abdomen: No significant abnormality Bony thorax: Degenerative changes Supraclavicular region: No significant abnormalityOther: No significant abnormalityI IMPRESSION: No suspicious nodules greater than 5 mm seen or new nodules identified. FOLLOW UP CT CHEST RECOMMENDATION: Follow-up screening in one year CT LUNG RAD: LUNG RAD CATEGORY 1 negative
--- NOTE | 2023-06-09 22:37 | US ---
EXAMINATION TYPE: US arterial LE single level DATE OF EXAM: 06/09/2023 1:24 PM CLINICAL INDICATION: Male, 62 years old with history of I73.9 PAD; Left leg cramping x 6+ months History of: Smoker: Yes Hypertension: Yes Diabetic: Yes Hyperlipidemia: Yes TIA/CVA: No Previous Vascular Surgery: No IA: No Doppler Waveforms: Right: Biphasic Left: Biphasic Pressure Gradients: Right Brachial Pressure: 87 Left Brachial Pressure: 90 Ankle-Brachial Indices: Right: 1.18 Left: 1.11 (Vessel hardening > 1.4; Normal 0.9 - 1.4, Moderate 0.7 - 0.9, Severe 0.5-0.7) IMPRESSION: 1. Unremarkable lower extremity arterial ultrasound
== END | disposition home or self-care (01) ==
LOC: RADCTMAIN 12:39
PROVIDERS: ATTEND Internal Medicine
DX: Z12.2 Encounter for screening for malignant neoplasm of respiratory organs (principal); I73.9 Peripheral vascular disease, unspecified; I65.23 Occlusion and stenosis of bilateral carotid arteries; F17.210 Nicotine dependence, cigarettes, uncomplicated
CPT/HCPCS: 71271; 93922

== ENCOUNTER → 2023-06-27 | Outpatient (CLI) | payer MEDICARE, OTHER ==
[2023-06-27 10:47] LABS: African American GFR (CKD) >90 (>60 ml/min/1.73 sqM); Blood Urea Nitrogen 11 mg/dL (9-20); Non-African American GFR(CKD) >90 (>60 ml/min/1.73 sqM)
--- NOTE | 2023-06-27 12:17 | CT ---
EXAMINATION TYPE: CT angio neck DATE OF EXAM: 06/27/2023 COMPARISON: Correlation carotid ultrasound 06/04/2023 HISTORY: 62-year-old male I 6 5.21, carotid stenosis TECHNIQUE: Contiguous axial scanning of the neck performed with IV Contrast, patient injected with 100 mL of Isovue 370. Coronal/sagittal reconstructions performed. 3-D reconstructions generated on a dedicated independent workstation. CT DLP: 332 mGycm Automated exposure control for dose reduction was used. FINDINGS: Conventional arch vessel branching anatomy. Dominant right vertebral artery. Otherwise, both vertebral arteries are patent throughout the course. The V4 segment left vertebral artery becomes even more diminutive and may terminate as a PICA branch . Trace mucosal thickening right maxillary sinus. Leftward nasal septal deviation. Right common carotid artery is patent. Mild atherosclerotic plaque at the right carotid bifurcation w ith mild, 20% distal CCA narrowing. The right internal carotid artery is patent. Left common carotid artery is patent. At the start of plaque and calcification at the origin of the left common carotid artery and bulb wit h moderate proximal ICA narrowing at 50%. Remainder of the left ICA is patent. NASCET criteria is visualized. ACDF hardware. Bilateral lingual tonsillar hypertrophy. IMPRESSION: 1. MODERATE, 50% PROXIMAL LEFT ICA STENOSIS. 2. MILD, 20% STENOSIS AT THE RIGHT CAROTID BIFURCATION. 3. DOMINANT RIGHT VERTEBRAL ARTERY. THE V4 SEGMENT LEFT VERTEBRAL ARTERY BECOMES EVEN MORE DIMINUTIVE AND MAY TERMINATE A PICA BRANCH.
== END | disposition home or self-care (01) ==
LOC: RADCTMAIN 09:58
PROVIDERS: ATTEND Internal Medicine
DX: I65.23 Occlusion and stenosis of bilateral carotid arteries (principal)
CPT/HCPCS: 82565; 84520; 70498; 36415; Q9967

== ENCOUNTER 2024-03-30 10:28 | Day surgery (SDC) | payer MEDICARE, OTHER ==
[~2024-03-30 10:28] MED LIST changes: +LACTATED RINGERS 1,000 ML IV SCH; +LIDOCAINE 1% (10MG/ML) FOR IV START INTRADERMA PRN; +Pre Op ABX Message 1 EACH MISC MISCELLANE ONE; -REGADENOSON 0.4 MG/5 ML SYRINGE IV PRN
[2024-03-30 11:28] LABS: Glucose,Whole Blood 100 mg/dL (70-110)
[2024-03-30] MEDS: IV FLUID CONTINUATION 500 ML IV ONE (11:29)
[2024-03-30] MEDS: DEXAMETHASONE SOD PHOSPHATE 4 MG/ML 1 ML VIAL IV ONE (11:32)
[2024-03-30] MEDS: ONDANSETRON 4 MG/2 ML VIAL IVP ONE (11:32)
[2024-03-30] MEDS: ACETAMINOPHEN TAB 500 MG TAB PO STA (12:52)
[2024-03-30] MEDS: HEPARIN SODIUM,PORCINE 5,000 UNIT/ML 1 ML VIAL SQ STA (12:53)
[2024-03-30] MEDS ORDERED: fentaNYL (PF) 50 MCG/ML 2 ML AMP ONE (12:53)
[2024-03-30] MEDS ORDERED: LIDOCAINE 1% INJ 10MG/ML (20 ML MDV) ONE (12:53)
[2024-03-30] MEDS ORDERED: SUCCINYLCHOLINE CHLORIDE 200 MG/10 ML VIAL IV ONE (12:53)
[2024-03-30] MEDS ORDERED: PHENYLEPHRINE 10 MG/ML VIAL ONE (12:53)
[2024-03-30] MEDS ORDERED: MIDAZOLAM 2 MG/2 ML VIAL ONE (12:53)
[2024-03-30] MEDS ORDERED: KETOROLAC 15 MG/ML 1 ML VIAL ONE (12:53)
[2024-03-30] MEDS ORDERED: PROPOFOL 10 MG/ML 20 ML VIAL IV ONE (12:53)
[2024-03-30] MEDS: LIDOCAINE 2% URO-JET JELLY 5 ML KIT MISCELLANE ONE (13:29)
--- NOTE | 2024-03-30 13:57 | P.OP ---
Date of Procedure: 03/30/24 Preoperative Diagnosis: hemorrhoid Postoperative Diagnosis: perianal masses Procedure(s) Performed: excision of aditya-anal mass x 3 Anesthesia: AMAA Surgeon: Reece To Estimated Blood Loss (ml): 3 Pathology: other (aditya-anal mass) Condition: stable Disposition: same day Indications for Procedure: pain Operative Findings: aditya anal mass x 3 Description of Procedure: Patient was brought to the operative suite where he was cleaned and draped in sterile fashion. Once in lithotomy, a timeout was performed and everyone agreed with the information recited. A rectal exam was performed and no significant disease was found. However there were multiple small masses/nodules. 3 leonides- size masses were resected using electrocautery. These were passed off for specimen. The incisions were closed using 3-0 chromic suture. The patient tolerated the procedure well and was transported to pacu in stable condition.
[2024-03-30 14:11] VITALS: TEMP 97.9
[2024-03-30] MEDS: HYDROmorphone 0.5 MG/0.5 ML SYRINGE IVP PRN (14:17)
[2024-03-30 14:48] VITALS: RESP 16
[2024-03-30 15:25] VITALS: BP 115/70; PULSE 80
== END 2024-03-30 16:28 | disposition home or self-care (01) ==
LOC: OR 10:28
PROVIDERS: ATTEND Surgery
DX: L72.0 Epidermal cyst (principal); K64.9 Unspecified hemorrhoids; I10 Essential (primary) hypertension; J44.89 Other specified chronic obstructive pulmonary disease; G47.33 Obstructive sleep apnea (adult) (pediatric); E11.9 Type 2 diabetes mellitus without complications; K21.9 Gastro-esophageal reflux disease without esophagitis; F17.210 Nicotine dependence, cigarettes, uncomplicated; Z79.84 Long term (current) use of oral hypoglycemic drugs; Z79.899 Other long term (current) drug therapy; Z88.8 Allergy status to other drugs, medicaments and biological substances
CPT/HCPCS: 46922; 88304; J2250; J0330; J1644; J1100; J2405; J2003; J3010; J1885; J2704; J1171; J2371

== ENCOUNTER 2024-05-13 06:49 | Day surgery (SDC) | payer MEDICARE, OTHER ==
[2024-05-12 10:35] VITALS: BMI 21.3
[2024-05-13] MEDS: LACTATED RINGERS 1,000 ML IV SCH (07:26)
[2024-05-13 07:30] LABS: Glucose,Whole Blood 77 mg/dL (70-110)
[2024-05-13 07:34] VITALS: TEMP 97.4
[2024-05-13] MEDS: IV FLUID CONTINUATION 1,000 ML IV ONE (07:34)
[2024-05-13 08:51] LABS: Glucose,Whole Blood 58 mg/dL (70-110)
[2024-05-13] MEDS: DEXTROSE 50% SYRINGE 50 ML IVP STA (08:54)
[2024-05-13 09:20] LABS: Glucose,Whole Blood 127 mg/dL (70-110)
[2024-05-13] MEDS ORDERED: LIDOCAINE 1% INJ 10MG/ML (20 ML MDV) ONE (10:42)
[2024-05-13] MEDS ORDERED: PROPOFOL 10 MG/ML 20 ML VIAL IV ONE (10:42)
[2024-05-13 11:00] LABS: Glucose,Whole Blood 70 mg/dL (70-110)
[2024-05-13 11:11] VITALS: BP 100/68; PULSE 67; RESP 18
[2024-05-13 11:37] LABS: Glucose,Whole Blood 131 mg/dL (70-110)
--- NOTE | 2024-05-14 23:02 | P.OP ---
Date of Procedure: 05/13/24 Preoperative Diagnosis: Screening Colonoscopy Postoperative Diagnosis: Poor Prep Procedure(s) Performed: 1. Flexible Sigmoidoscopy 2. Aborted Colonoscopy Anesthesia: MAC Surgeon: Kenny Rosa Pathology: none sent Condition: stable Disposition: PACU Description of Procedure: The patient was brought to the endoscopy suite and placed in the left lateral decubitus position. After induction of IV sedation, the Olympus video colonoscope was passed to the sigmoid colon and it was apparent the prep was jazmín y poor. The colonoscopy was at approximate 55 cm when I decided to abort the colonoscopy due to poor prep. At that time, I decided just to perform a flexible sigmoidoscopy. The sigmoid colon was normal without diverticula, polyps, or masses. The rectum was normal without hemorrhoids. The patient will need a repeat colonoscopy.
== END 2024-05-13 12:11 | disposition home or self-care (01) ==
LOC: ORWHC2ENDO 06:49
PROVIDERS: ATTEND Surgery
DX: Z12.11 Encounter for screening for malignant neoplasm of colon (principal); Z53.8 Procedure and treatment not carried out for other reasons; I48.91 Unspecified atrial fibrillation; I10 Essential (primary) hypertension; E11.9 Type 2 diabetes mellitus without complications; E78.5 Hyperlipidemia, unspecified; G47.33 Obstructive sleep apnea (adult) (pediatric); K21.9 Gastro-esophageal reflux disease without esophagitis; F17.200 Nicotine dependence, unspecified, uncomplicated; Z79.84 Long term (current) use of oral hypoglycemic drugs; Z79.899 Other long term (current) drug therapy; Z98.1 Arthrodesis status; Z88.8 Allergy status to other drugs, medicaments and biological substances
CPT/HCPCS: 45378; J2003; J2704; 45330

== ENCOUNTER → 2024-05-20 | Outpatient (CLI) | payer MEDICARE, OTHER ==
--- NOTE | 2024-05-20 18:03 | CA ---
Transthoracic Echo Report Name: Aries Howe Age: 63 Gender: M : 1960 Exam Date: 05/20/2024 13:09 Exam Location: [facility] Ht (in): 66 Wt (lb): 130 Ordering Physician: Betty Boothe MD Attending/Referring Phys: Betty Boothe MD Sales Enablement Consultant Gillian Kiran RDCS Procedure CPT: Indications: I25.10 ATHSCL HEART DISEASE OF [place] CORONARY ART Cardiac Hx: Technical Quality: Good Contrast 1: Total Dose (mL): Contrast 2: Total Dose (mL): MEASUREMENTS (Male / Female) Normal Values 2D ECHO LV Diastolic Diameter PLAX 3.7 cm 4.2 - 5.9 / 3.9 - 5.3 cm LV Systolic Diameter PLAX 2.5 cm IVS Diastolic Thickness 1.0 cm 0.6 - 1.0 / 0.6 - 0.9 cm LVPW Diastolic Thickness 1.0 cm 0.6 - 1.0 / 0.6 - 0.9 cm LV Relative Wall Thickness 0.5 RV Internal Dim ED PLAX 2.9 cm LA Systolic Diameter LX 3.2 cm 3.0 - 4.0 / 2.7 - 3.8 cm LV Diastolic Volume MOD 4C 74.2 cm??? LV Systolic Volume MOD 4C 30.3 cm??? LV Ejection Fraction MOD 4C 59.2 % LV Cardiac Index MOD 4C 1882.7 cm???/min???m??? LV Diastolic Length 4C 8.2 cm LV Systolic Length 4C 6.7 cm LV Diastolic Volume MOD 2C 87.1 cm??? LV Systolic Volume MOD 2C 35.7 cm??? LV Ejection Fraction MOD 2C 58.9 % LV Cardiac Index MOD 2C 2200.7 cm???/min???m??? LV Diastolic Length 2C 8.5 cm LV Systolic Length 2C 6.9 cm LA Volume 36.6 cm??? 18 - 58 / 22 - 52 cm??? LA Volume Index 22.1 cm???/m??? 16 - 28 cm???/m??? M-MODE Aortic Root Diameter MM 3.1 cm AV Cusp Separation MM 2.0 cm DOPPLER AV Peak Velocity 124.9 cm/s AV Peak Gradient 6.2 mmHg FINDINGS Left Ventricle Left ventricular ejection fraction is estimated at 60-65 %. Small left ventricular cavity. Left ventricular wall thickness normal. Normal left ventricular wall motion. Right Ventricle Normal right ventricular size and function. Unable to estimate the right ventricular systolic pressure. Right Atrium Normal right atrial size. No right atrial thrombus or mass seen. Left Atrium Normal left atrial size. No left atrial thrombus or mass present. Mitral Valve Structurally normal mitral valve. No evidence for mitral valve prolapse. No mitral stenosis. Trace mitral regurgitation. Aortic Valve Trileaflet aortic valve. No aortic valve stenosis or regurgitation. Tricuspid Valve Structurally normal tricuspid valve. No tricuspid stenosis, regurgitation or prolapse. Pulmonic Valve Structurally normal pulmonic valve. Trace pulmonic regurgitation. Pericardium No pericardial effusion. Aorta Normal size aortic root and proximal ascending aorta. CONCLUSIONS 1. Normal ventricular size and systolic function 2. Trace tricuspid regurgitation Previewed by: Dr. Jhonny Ignacio MD (Electronically Signed) Final Date: 20 May 2024 18:03
== END | disposition home or self-care (01) ==
LOC: RADECHMAIN 12:53
PROVIDERS: ATTEND Internal Medicine
DX: I25.10 Atherosclerotic heart disease of native coronary artery without angina pectoris (principal); I07.1 Rheumatic tricuspid insufficiency; I37.1 Nonrheumatic pulmonary valve insufficiency
CPT/HCPCS: 93306

== ENCOUNTER → 2024-09-14 | Outpatient (CLI) | payer MEDICARE, OTHER ==
--- NOTE | 2024-09-14 13:04 | CTL ---
EXAMINATION TYPE: CT Low Dose Lung DATE OF EXAM: 09/14/2024 12:15 PM COMPARISON: CT most recently 06/09/2023 and most consistent 07/27/2009 CLINICAL INDICATION: Male, 63 years old with history of Z12.2 SCREENING LUNG CA F17.210 CURRENT SMOKE R; Current smoker, 1ppd x 45 years. H/O COPD and bronchitis, history of tobacco use. TECHNIQUE: Multiple axial non-contrast scans were obtained from approximately the lung apices through the upper abdomen. Coronal and sagittal reformatted images were obtained. Low dose technique was uti lized. MIP were created on a separate workstation and submitted for review. CT DLP: 71.8 mGycm, Automated exposure control for dose reduction was used. CT Contrast: Contrast used: None Oral contrast used: None FINDINGS: Lack of intravenous contrast and low dose technique limits the evaluation of the vascular and soft ti ssue structures. LUNGS: No evidence of pulmonary fibrosis. No evidence of focal consolidation, pneumothorax or pleural effusion. Centrilobular emphysema changes. Nodules: RUL: None. RML: None. RLL: None. HILARIO: None. LLL: None. AIRWAY: Patent and unremarkable. HEART: Size within normal limits. Mild coronary artery calcifications present. MEDIASTINUM: No gross evidence of adenopathy. VASCULATURE: No aortic aneurysm. MUSCULOSKELETAL: Mild disc degeneration changes are present throughout the thoracolumbar spine. SOFT TISSUES/LYMPH NODES: Unremarkable. LOWER NECK: No significant findings. UPPER ABDOMEN: Simple appearing right renal cortical cyst partially visualized in the [id number]-ce-ywwn b ut to be present measuring 18 until units. IMPRESSION: 1. No clinically significant pulmonary nodules. 2. Mild emphysema. 3. Fluid collection just medial and posterior to the right kidney likely present. Was seen on 4. Consider further evaluation with CT abdomen pelvis with IV contrast. Not seen on 07/27/[address] LUNG RAD AND CT CHEST RECOMMENDATION: Lung-Rad 1 Negative: Continue annual screening with LDCT in 12 months. S Modifier (other clinically significant findings): None Recommend smoking cessation (if current smoker), or continuation of smoking cessation (if prior smoke r). Annual screening for lung cancer with low-dose computed tomography is recommended in adults ages 55 to 77 years who have a 30 pack-year smoking history and currently smoke or have quit within the pa st 15 years. Screening should be discontinued once a person has not smoked for 15 years or develops a health problem that substantially limits life expectancy or the ability or willingness to have curat estela lung surgery. Lung rads 2021 [email or web address] [facility], , 09/14/2024 1:02 PM
== END | disposition home or self-care (01) ==
LOC: RADCTMAIN 11:29
PROVIDERS: ATTEND Internal Medicine
DX: Z12.2 Encounter for screening for malignant neoplasm of respiratory organs (principal); F17.210 Nicotine dependence, cigarettes, uncomplicated; J43.2 Centrilobular emphysema
CPT/HCPCS: 71271